=== PATIENT | female | born 1975 | race Caucasian/White ===

== ENCOUNTER 2017-06-22 18:58 | Emergency (ER) | payer MEDICAID, SELFPAY ==
[2017-06-22 18:59] VITALS: BP 159/98; PULSE 82; RESP 16; TEMP 36.7; O2SAT 97; BMI 44.6
--- NOTE | 2017-06-22 20:31 | ED.DCSUM_ITS ---
- ER Visit Summary Date of Service: 06/22/17 Chief Complaint: Rash History of Present Illness: The patient is a 42 F who presents with a rash. 3 days ago she was diagnosed with a dental abscess by her dentist because of an x- ray. She was also having pain. She started amoxicillin. The day she began it she developed a itchy rash on her arms as well as facial redness and swelling. She stopped the amoxicillin but states that her rash and swelling have gotten worse. She has not contacted the dentist or primary care physician. Physical Examination: Afebrile vitals are stable Patient does have some facial erythema and edema but her airway is patent no wheezing no stridor Heart regular rate and rhythm Lungs clear Patient does have a rash on the bilateral arms Test Results: Not indicated Emergency Department Course and Treatment: Patient's history and presentation are consistent with an adverse reaction to amoxicillin and drug allergy. She was given a dose of prednisone here. She was given a prescription for the same. We will switch her to clindamycin for dental abscess and she was discharged home. Treatment Plan: [] Disposition: Discharge Impression: Allergic reaction to amoxicillin Dental abscess This note was generated with [email or web address] dictation software. It may contain incorrect words, spelling, and punctuation that were not noted in review of the chart prior to signing ED Disposition - Plan for ED Patient: Chief Complaint: Allergic Reaction Referrals: Xander Jacome DO [Primary Care Provider] -
--- NOTE | 2017-06-22 20:31 | ED.DEP ---
ED Disposition - Plan for ED Patient: Chief Complaint: Allergic Reaction Instructions: ED Drug React Allergic Prescriptions: Prednisone [Deltasone] 60 mg PO DAILY #12 tab Clindamycin [Cleocin] 300 mg PO TID #60 cap Referrals: Xander Jacome DO [Primary Care Provider] -
[2017-06-22] MEDS: predniSONE 20 MG Tablet 60 MG PO (20:37)
== END 2017-06-22 20:40 | disposition home or self-care (01) ==
PROVIDERS: Emergency Provider Emergency Medicine; Family Provider Student in an Organized Health Care Education/Training Program; PCP Student in an Organized Health Care Education/Training Program
DX: L27.1 Localized skin eruption due to drugs and medicaments taken internally (principal); T36.0X5A Adverse effect of penicillins, initial encounter; K04.7 Periapical abscess without sinus; Z72.0 Tobacco use
CPT/HCPCS: 99283

== ENCOUNTER 2017-11-03 05:47 | Emergency (ER) | payer MEDICAID, SELFPAY ==
[2017-11-03 05:47] VITALS: BP 163/83; PULSE 84; RESP 16; TEMP 36.4; O2SAT 95; BMI 44.9
--- NOTE | 2017-11-03 05:58 | ED.VISSUMM ---
- ER Visit Summary Date of Service: 11/03/17 Chief Complaint: [] Right-sided kidney stone History of Present Illness: The patient is a 42 F of recurrent flank pain for last 3 hours sudden onset continuous waxes and wanes pain in her right lower abdomen flank region. Associated with some mild nausea no vomiting. She stated she thinks she has another kidney stone. She has had 3 like this in the past. It feels the same. She is passed them all. She is never seen a urologist. No home treatment. History of a partial hysterectomy Physical Examination: [] Vital signs reviewed General: Well-nourished well-developed Head: Normocephalic atraumatic Eyes: Pupils equal round and reactive to light extraocular movements intact ENT: TMs clear no hemotympanum no trauma Neck: Nontender full range of motion Cardiovascular: Regular rate rhythm no murmurs normal S1-S2 Respiratory: No distress clear to auscultation bilaterally chest nontender Abdomen: Soft nontender nondistended normal bowel sounds no masses Back: Nontender no CVA tenderness Extremities: Nontender active range of motion ?4 extremities no trauma Skin: Normal color no trauma Neuro alert oriented cranial nerves II through XII intact normal strength sensation reflexes Test Results: [] Emergency Department Course and Treatment: [] Patient given IV fluids, Zofran, morphine, Toradol. Patient felt much better after treatment. She will be discharged with a short course of hydrocodone and Zofran. At this time I do not think she needs further lab work or imaging. This sounds like a recurrent kidney stone she will follow-up with urology. Treatment Plan: [] Disposition: [] Impression: [] Right acute flank pain suspected kidney stone This note was generated with [employer] dictation software. It may contain incorrect words, spelling, and punctuation that were not noted in review of the chart prior to signing ED Disposition - Plan for ED Patient: Disposition: Home or Assisted Living Chief Complaint: Flank Pain Instructions: ED Stone Renal W Colic Prescriptions: Hydrocodone Bitart/Apap 5-325 [[place] 5MG-325MG] 1 - 2 tab PO Q4H PRN PRN 2 Days #8 tab PRN Reason: Pain Ondansetron [Zofran Odt] 4 mg PO Q8H PRN PRN #10 tab PRN Reason: Nausea Referrals: Xander Jacome DO [Primary Care Provider] - Jose Gutiérrez MD [STAFF PHYSICIAN] -
--- NOTE | 2017-11-03 06:01 | DCINST.ED_ITS ---
ED Disposition - Plan for ED Patient: Disposition: Home or Assisted Living Chief Complaint: Flank Pain Instructions: ED Stone Renal W Colic Prescriptions: Hydrocodone Bitart/Apap 5-325 [[place] 5MG-325MG] 1 - 2 tab PO Q4H PRN PRN 2 Days #8 tab PRN Reason: Pain Ondansetron [Zofran Odt] 4 mg PO Q8H PRN PRN #10 tab PRN Reason: Nausea Referrals: Xander Jacome DO [Primary Care Provider] - Jose Gutiérrez MD [STAFF PHYSICIAN] -
[2017-11-03] MEDS: 0.9% Normal Saline 1,000 ML 1000 ML IV (06:02)
[2017-11-03] MEDS: Ondansetron 4 MG/2 ML Vial IV (06:03)
[2017-11-03] MEDS: Ketorolac 30 MG/ML Syringe IV (06:03)
[2017-11-03] MEDS: Morphine 4 MG/ML Syringe IV (06:04)
[2017-11-03 06:54] VITALS: BP 140/79; PULSE 62; RESP 18; O2SAT 99
== END 2017-11-03 06:55 | disposition home or self-care (01) ==
PROVIDERS: Emergency Provider Emergency Medicine; Family Provider Student in an Organized Health Care Education/Training Program; PCP Student in an Organized Health Care Education/Training Program
DX: N20.0 Calculus of kidney (principal); Z87.442 Personal history of urinary calculi; E66.9 Obesity, unspecified; Z68.41 Body mass index [BMI] 40.0-44.9, adult; E03.9 Hypothyroidism, unspecified; Z79.899 Other long term (current) drug therapy; Z72.0 Tobacco use
CPT/HCPCS: 96361; 96374; 96375; 99285; J7030; A4216; J2405

== ENCOUNTER 2017-11-05 14:41 | Emergency (ER) | payer MEDICAID, SELFPAY ==
[2017-11-05 14:41] VITALS: BP 161/94; PULSE 112; RESP 18; TEMP 37.4; O2SAT 96; BMI 44.4
--- NOTE | 2017-11-05 15:35 | ED.DCSUM_ITS ---
- ER Visit Summary Date of Service: 11/05/17 Chief Complaint: [] Right sided abdominal pain for about 4 days History of Present Illness: The patient is a 42 F [] history of cholecystectomy hysterectomy removal of left ovary kidney stones who began having right-sided abdominal pain about 4 days ago she was seen in the emergency department workup was unremarkable, she was seen by urgent care the workup there included negative UA and she was sent to the emergency department today for evaluation no nausea vomiting or fever normal bowel bladder habits normal urinary symptoms has persistence of discomfort she is able to eat Physical Examination: [] Her temperature is 99 the rest of her vital signs are within normal range head neck chest unremarkable abdomen soft there is a vague pain to the right side abdomen there is really no focality the pain it is more general is no obvious rebound guarding organomegaly the back is unremarkable upper lower extremity skin neurologic exam unremarkable Test Results: [] Emergency Department Course and Treatment: [] The differential is extensive given all of the above labs IV fluids CT pain management Patient studies are all generally unremarkable including the CT scan that shows nothing acute normal appendix please see all those reports Stable in the department no change in her status, expand all the test results to her of explained that the exact nature of the pain that she has had for some time now is unclear she has felt her family doctor for the management stay on bland diet Tylenol Motrin for pain and return for change in symptoms and she understands we will do so Treatment Plan: [] Disposition: [] Stable home Impression: [] Right-sided abdominal pain for 4 days etiology unclear This note was generated with [employer] dictation software. It may contain incorrect words, spelling, and punctuation that were not noted in review of the chart prior to signing ED Disposition - Plan for ED Patient: Chief Complaint: Abd Pain Referrals: Xander Jacome DO [Primary Care Provider] -
[2017-11-05 15:59] LABS: Absolute Lymphocyte Count 0.95 X10^3/ul (0.83-4.51); Absolute Neutrophil Count 4.7 X10^3/uL (2.0-7.7); Basophil# 0.01 X10^3/uL; Basophil% 0.2 % (0-1); Eosinophil# 0.07 X10^3/uL; Eosinophils% 1.1 % (0-5); Hematocrit 39.4 % (37-47); Hemoglobin 13.2 g/dl (12.0-15.0); Lymphocyte # 0.95 X10^3/ul (4.0); Lymphocyte % 15.3 % (19-41); Mean Corp Hgb Conc 33.5 g/gl (32-36); Mean Corpuscular Hgb 30.2 pg (27.0-32.0); Mean Corpuscular Volume 90.2 fL (81-99); Mean Platelet Vol. 9.8 fl (6.2-12.0); Monocyte# 0.45 X10^3/uL; Monocyte% 7.2 % (0-10); Neutrophil # 4.73 X10^3/uL (2.7-7.7); Platelet Count 186 K/mm3 (150-450); RBC Distribution Width CV 13.1 % (11.6-14.6); RBC Distribution Width SD 42.5 fl (35.1-43.9); Red Blood Count 4.37 M/mm3 (4.2-5.4); White Blood Count 6.2 K/mm3 (4.4-11.0)
[2017-11-05 16:00] LABS: POSITIVE COUNT NO; POSITIVE DIFFERENTIAL NO; POSITIVE MORPHOLOGY NO
[2017-11-05] MEDS: Ondansetron 4 MG/2 ML Vial IV (16:00)
[2017-11-05] MEDS: 0.9% Normal Saline 1,000 ML 1000 ML IV (16:00)
[2017-11-05] MEDS: morphine 8 MG/ML Syringe IV (16:01)
[2017-11-05 16:14] LABS: Mucous, Urine 0 SEEN /hpf (<or=2+); Red Blood Cells-Urine 0 SEEN /hpf (0-5)
[2017-11-05 16:19] LABS: Color, Urine Yellow (Yellow); Glucose, Dipstick Normal (Normal); Ketone-Dipstick Negative (Negative); Leukocyte Esterase-Dipstick Negative /ul (Negative); Nitrite-Dipstick Negative (Negative); Occult Blood-Urine Negative /ul (Negative); Protein-Dipstick Negative (Negative); Urine Bilirubin Dipstick Negative (Negative); Urine Clarity Cloudy (Clear); Urine Urobilinogen Normal (Normal)
[2017-11-05 16:22] LABS: AST(SGOT) 29 U/L (15-37); Alanine Aminotransfer ALT/SGPT 49 U/L (13-56); Albumin, Serum 3.3 g/dL (3.2-5.0); Alkaline Phosphatase 63 U/L (45-117); Anion Gap 11 (5-15); BUN 9 mg/dL (7-18); BUN/Creat Ratio 10.7 RATIO (10-20); Bilirubin, Direct 0.14 mg/dL (0.00-0.30); Calcium,Total 8.8 mg/dL (8.5-10.1); Chloride 106 mmol/L (98-107); Creatinine, Serum 0.84 mg/dL (0.55-1.02); EST Glomerular Filtration Rate 79 mL/min (>60); Est Glom Filt Rate - Afr Amer 96 mL/min (>60); Estimated Creatinine Clearance 76.11 ml/min; Globulin 4.1 g/dL (2.2-4.2); Glucose 131 mg/dL (74-106); Lipase 113 U/L (73-393); Potassium 3.8 mmol/L (3.5-5.1); Protein, Total 7.4 g/dL (6.4-8.2); Sodium Level 139 mmol/L (136-145)
[2017-11-05 16:38] LABS: White Blood Cells 0-5 SEEN /hpf (0-5)
[2017-11-05 16:39] LABS: Bacteria RARE /hpf (None Seen); Squamous Epithelial Cells - UA 5-10 SEEN /hpf (5-10)
[2017-11-05 16:40] LABS: Transitional Epithelial - Ur 0 SEEN /hpf (0-5)
[2017-11-05 17:28] VITALS: BP 134/85; PULSE 78; RESP 18; O2SAT 98
--- NOTE | 2017-11-05 18:02 | ED.DEP ---
ED Disposition - Plan for ED Patient: Chief Complaint: Abd Pain Instructions: ED Abdominal Pain Unkn Cause Referrals: Xander Jacome DO [Primary Care Provider] -
[2017-11-05 18:14] VITALS: BP 125/78; PULSE 90; RESP 16; O2SAT 98
== END 2017-11-05 18:15 | disposition short-term general hospital (02) ==
PROVIDERS: Emergency Provider Emergency Medicine; Family Provider Student in an Organized Health Care Education/Training Program; PCP Student in an Organized Health Care Education/Training Program
DX: R10.31 Right lower quadrant pain (principal); Z90.49 Acquired absence of other specified parts of digestive tract; Z90.710 Acquired absence of both cervix and uterus; Z90.721 Acquired absence of ovaries, unilateral; Z87.442 Personal history of urinary calculi
CPT/HCPCS: 74176; 80048; 80076; 81001; 83690; 85025; 96374; 96375; 99283; J7030; A4216; J2405

== ENCOUNTER 2018-03-23 01:07 | Emergency (ER) | payer MEDICAID, SELFPAY ==
[2018-03-23 01:07] VITALS: BP 160/92; PULSE 82; RESP 18; TEMP 36.6; O2SAT 95; BMI 42.5
[2018-03-23] MEDS: morphine 8 MG/ML Syringe IM (01:23)
--- NOTE | 2018-03-23 01:51 | ED.DCSUM_ITS ---
- ER Visit Summary Date of Service: 03/23/18 Chief Complaint: Head, neck, shoulder pain History of Present Illness: The patient is a 42 F who woke from sleep 2 days ago with right-sided neck pain. Pain is now persisted and worsened with radiation across the top of her right scalp. She is been taking Tylenol with minimal improvement. Physical Examination: Blood pressure is 160/92, otherwise vitals normal. Patient sitting upright in bed. Head neck examination reveals no external sign of trauma. She has reproducible tenderness of the right cervical paraspinal muscles at the base of the occiput on the right. She has limited rotational range of motion secondary to pain and spasm. Heart is regular rate and rhythm. Lung sounds are clear. Abdomen is soft nontender. Neuro exam reveals normal strength and sensation throughout with strong pulses. Test Results: [] Emergency Department Course and Treatment: Patient is given IM morphine and p.o. Flexeril. On repeat evaluation the neck tightness is slightly improved. She still has significant pain at the base of the occiput. She will be started on anti-inflammatories, [place], and Flexeril. Treatment Plan: [] Disposition: Discharge Impression: Cervical paraspinal strain with spasm This note was generated with [employer] dictation software. It may contain incorrect words, spelling, and punctuation that were not noted in review of the chart prior to signing ED Disposition - Plan for ED Patient: Chief Complaint: Other, Pain/Inj Referrals: Xander Jacome DO [Primary Care Provider] -
--- NOTE | 2018-03-23 02:14 | ED.DEP ---
ED Disposition - Plan for ED Patient: Disposition: Home or Assisted Living Chief Complaint: Other, Pain/Inj Instructions: ED Sprain Strain Neck, ED Spasm Muscle Prescriptions: Hydrocodone Bitart/Apap 5-325 [[place] 5MG-325MG] 1 tablet PO Q6H PRN PRN 3 Days #10 tablet PRN Reason: Pain Naproxen [Naprosyn] 500 mg PO BID PRN PRN #20 tablet PRN Reason: Pain Cyclobenzaprine [Flexeril] 10 mg PO TID PRN #20 tablet PRN Reason: Muscle Spasm Referrals: Xander Jacome DO [Primary Care Provider] - 1 Week
[2018-03-23 02:28] VITALS: BP 163/94; PULSE 75; RESP 18; O2SAT 97
== END 2018-03-23 02:31 | disposition home or self-care (01) ==
PROVIDERS: Emergency Provider Emergency Medicine; Family Provider Student in an Organized Health Care Education/Training Program; PCP Student in an Organized Health Care Education/Training Program
DX: S16.1XXA Strain of muscle, fascia and tendon at neck level, initial encounter (principal); X58.XXXA Exposure to other specified factors, initial encounter; Y93.9 Activity, unspecified; Y92.9 Unspecified place or not applicable; M62.838 Other muscle spasm; Z72.0 Tobacco use
CPT/HCPCS: 96372; 99284

== ENCOUNTER 2024-08-25 11:13 | Emergency (ER) | payer SELFPAY ==
[2024-08-25 11:14] VITALS: BP 178/106; PULSE 83; RESP 16; TEMP 36.4; O2SAT 99; BMI 46.9
--- NOTE | 2024-08-25 11:16 | EDS_ITS ---
HPI History of Present Illness Chief Complaint: Chest Pain Informant: patient Onset/Context/Timing Onset: Yesterday Activity at onset: gradual Timing: Continuous Quality: Positive for Sharp Location: Left Chest Worsened By: - (Smoking a cigarette) Relieved By: - (Coughing) Associated Symptoms: Positive for Dyspnea, Cough, Lightheadedness, Acid Reflux and Palpitations; Negative for Nausea, Vomiting, Diaphoresis or Fever Narrative Narrative: Patient presents with chest pain that began yesterday. Patient was at a different emergency department yesterday. Patient states they wanted to admit her for observation. Patient refused and was discharged. Patient states her pain has been constant today. Patient describes it as sharp. Patient states it is over the left side of her chest. Patient states it is worse when she smokes cigarettes. Patient states it is better with coughing. Patient admits to some shortness of breath and lightheadedness. Patient also admits to some palpitations and reflux symptoms. CVD Risk Factors: Positive for Hypertension and Smoking; Negative for Diabetes, Hypercholesterolemia or Family History 1' </=55 PE Risk Factors: Negative for Recent Travel/Surgery, Recent Immobilization, Prior DVT or PE or Cancer [facility] Medical History (Updated 08/25/24 @ 15:[address] Emmanuel Levy DO) Kidney stones Fatty liver Chronic kidney disease Hypertension Rosie's thyroiditis Home Medications ?Medication ?Instructions ?Recorded ?Last Taken ?Type NK 08/25/24 Unknown History Allergy/AdvReac Type Severity Reaction Status Date / Time amoxicillin Allergy Rash Verified 08/25/24 11:15 Surgical History History of oophorectomy Hx of tubal ligation Hx of section Hx of cholecystectomy Social History (Updated 08/25/24 @ 11:[address] Emmanuel Levy DO) Smoking Status: Current every day smoker tobacco type: cigarettes Smoking packs per day: 1 Smoking cigarettes per day: 20.0 ROS ROS ED Constitutional Constitutional ED: Denies chills or fever(s) Eyes Eyes: Reports blurry vision; Denies change in vision ENT ENT ED: Denies rhinorrhea or sore throat Cardiovascular Cardiovascular: Reports chest pain and palpitations Respiratory/Chest Respiratory/Chest: Reports cough and dyspnea Gastrointestinal Gastrointestinal: Denies nausea or vomiting Genitourinary Genitourinary ED: Denies dysuria or hematuria Musculoskeletal Musculoskeletal: Reports neck pain; Denies back pain Integumentary Denies abscess or rash Neurologic Neurologic: Denies headache(s) or weakness Allergic/Immunologic Allergic/Immunologic ED: Denies mouth swelling or urticaria EXAM Physical Exam Const Vital Signs: 08/25/24 11:14 08/25/24 12:14 08/25/24 13:00 Temperature 97.6 F L Temperature Source Oral Pulse Rate 83 82 75 Respiratory Rate 16 20 H 20 H Blood Pressure 178/106 H 152/102 H 145/93 H Blood Pressure Mean 130 118 110 Pulse Ox 99 98 98 Oxygen Delivery Method Room Air Room Air 08/25/24 14:00 Temperature Temperature Source Pulse Rate 76 Respiratory Rate 19 H Blood Pressure 157/92 H Blood Pressure Mean 113 Pulse Ox 97 Oxygen Delivery Method Room Air Positive well nourished and well developed General Appearance ED: well developed and NAD HEENT Reports moist mucous membranes Neck supple and no JVD Resp normal respiratory effort and clear to auscultation bilaterally Cardio regular rate and regular rhythm GI soft to palpation, non-tender and non-distended Extremity normal to inspection General Extremety ED: Negative for edema or tenderness General Extremity: Negative for edema Neuro oriented x3, CN's II-XII intact bilaterally and no sensory deficits noted Sensorium / Orientation: awake and alert Motor Exam: strength 5/5 throughout Heart Score History: Slightly/Non-Suspicious ECG: Normal Age: >45 - <65 years Risk Factors: 1 or 2 Risk Factors Troponin: </= Normal Limit Score: 2 MDM MDM MDM Narrative Medical decision making narrative: Differential diagnosis includes cardiac dysrhythmia, cardiac ischemia, pneumonia, bronchitis, pulmonary embolism, electrolyte abnormality, musculoskeletal pain, and anxiety. EKG will be obtained to assess for cardiac dysrhythmia and cardiac ischemia. Chest x-ray will be obtained to assess for pneumonia and bronchitis. CBC will be obtained to assess for leukocytosis and anemia. Basic metabolic profile will be obtained to assess for electrolyte abnormality and renal function. High-sensitivity troponin will be obtained to assess for cardiac ischemia. 2-hour repeat high-sensitivity troponin will be obtained to assess for ongoing cardiac ischemia. D-dimer will be obtained to assess for pulmonary embolism. Lab Data Attestation: I reviewed the patient's lab results. Lab results narrative: CBC was reviewed. White blood cell count was slightly low at 3.6. The remainder is within normal limits. Basic metabolic profile was reviewed. Glucose was slightly elevated at 249. The remainder was within normal limits. Initial high-sensitivity troponin was reviewed and was normal at 7. D-dimer was reviewed and was normal at 0.27. TSH was reviewed. It was mildly elevated at 12.1. 2-hour repeat high-sensitivity troponin was reviewed and was normal at 8. Labs: Laboratory Results - last 24 hr 08/25/24 08/25/24 11:45 13:45 WBC 3.6 L RBC 4.42 Hgb 12.5 Hct 37.3 MCV 84.4 MCH 28.3 MCHC 33.5 RDW Std Deviation 43.6 RDW Coeff of Emmanuel 14.2 Plt Count 184 MPV 10.4 Immature Gran % (Auto) 0.300 Neut % (Auto) 58.8 Lymph % (Auto) 26.0 [place] % (Auto) 11.3 H Eos % (Auto) 3.3 Baso % (Auto) 0.3 Absolute Neuts (auto) 2.1 Absolute Lymphs (auto) 0.94 Nucleated RBC % 0 D-Dimer Quant (PE/DVT) 0.27 Sodium 135 Potassium 3.9 Chloride 104 Carbon Dioxide 20.6 L Anion Gap 10 BUN 11 Creatinine 0.62 L Estim Creat Clear Calc 149.56 Est GFR (MDRD) Non-Af 110 BUN/Creatinine Ratio 16.9 Glucose 249 H Calcium 9.0 Troponin T High Sens 7 Troponin T Hi Sens 2 Hr 8 TSH 12.100 H Radiography Chest X-Ray - ED: 1 View, Read by ED Physician, Read by Radiologist and No Acute Disease Diagnostic Testing: Clinical Impression(s) from Imaging Studies Chest X-Ray 08/25/24 11:33 IMPRESSION: No acute process detected. Reading Location: [facility] Portable 1 view chest x-ray was obtained. On my independent interpretation, lung escalante are clear. There is normal cardiac silhouette. Bony thorax is normal. There is no acute process noted. Radiologist also interpreted the x- ray and agrees. EKG Initial EKG: Attestation: I personally reviewed and interpreted this EKG as follows: Interpretation: Sinus Rhythm (80) and No Acute Injury Pattern Comments: EKG was obtained. On my independent interpretation, it showed a normal sinus rhythm with a rate of 80. GA interval, QRS interval, and QTc intervals were all normal. [place] was normal. There are no acute ST or T wave changes. Prior EKG tracings: available for review Prior: Unchanged (12/12/1998) Treatment and Re-Evaluation :: Patient was given aspirin. Patient had no further chest pain. Patient was advised of her findings. Patient has a HEART score of 2. Patient was advised that this is low risk for acute cardiac event. Patient was instructed to follow-up with her primary care physician in 5 to 7 days. Patient was instructed to restart her thyroid medication as previously prescribed. Patient was instructed to return to the emergency department if worse in any way. Patient understood and was agreeable with the plan. All questions were answered. Discharge Plan Triage Chief Complaint: Chest Pain ED Provider: Emmanuel Levy Dx/Rx/DC Orders Clinical Impression: Chest pain, Rosie's thyroiditis, Hypertension Instructions: ED Chest Pain, Uncertain Cause Prescriptions: No Action NK Primary Care Provider: Care Physician,No Primary Referrals: Xander Jacome DO [Non-Staff] - 3-5 Days Print Language: Lebanese Disposition Disposition: Home, Self Care
--- NOTE | 2024-08-25 11:33 | RAD_ITS ---
PROCEDURE: CHEST 1 VIEW (PORTABLE) 08/25/2024 REASON FOR EXAM: CHEST PAIN TECHNIQUE: Frontal view of the chest. COMPARISON: None. FINDINGS: Hardware: EKG leads wires project over the chest. Heart: Normal size. Lungs: Clear. Bones: No aggressive process Other: RAD/Chest 1 View (Portable) IMPRESSION: No acute process detected. Reading Location: [facility]
--- NOTE | 2024-08-25 11:33 | EKG12_ITS ---
Test Reason : chest pain Blood Pressure : */* mmHG Vent. Rate : 80 BPM Atrial Rate : 80 BPM P-R Int : 170 ms QRS Dur : 84 ms QT Int : 408 ms P-R-T Axes : 56 18 36 degrees QTcB Int : 470 ms Normal sinus rhythm Normal ECG Confirmed by Elmo Brito ([id number]), senior editor EMILY WILSON ([id number]) on 08/30/2024 11:31:30 AM Referred By: Confirmed By: Elmo Brito
[2024-08-25 11:59] LABS: Absolute Lymphocyte Count 0.94 X10^3/uL (0.83-4.51); Absolute Neutrophil Count 2.1 X10^3/uL (2.0-7.7); Basophil# 0.01 X10^3/uL; Basophil% 0.3 % (0-1); Eosinophil# 0.12 X10^3/uL; Eosinophils% 3.3 % (0-5); Hematocrit 37.3 % (37-47); Hemoglobin 12.5 g/dL (12.0-15.0); Lymphocyte # 0.94 X10^3/ul (0.83-4.51); Mean Corp Hgb Conc 33.5 g/dL (32-36); Mean Corpuscular Hgb 28.3 pg (27.0-32.0); Mean Corpuscular Volume 84.4 fL (81-99); Mean Platelet Vol. 10.4 fl (6.2-12.0); Monocyte# 0.41 X10^3/uL; Monocyte% 11.3 % (0-10); NRBC Flagged by Analyzer 0 % (0-5); Neutrophil # 2.13 X10^3/uL (2.7-7.7); Neutrophil % 58.8 % (47-70); Platelet Count 184 K/mm3 (150-450); RBC Distribution Width CV 14.2 % (11.6-14.6); RBC Distribution Width SD 43.6 fl (35.1-43.9); Red Blood Count 4.42 M/mm3 (4.2-5.4); White Blood Count 3.6 K/mm3 (4.4-11.0)
[2024-08-25] MEDS: Aspirin 81 MG TAB.CHEW 324 MG PO (12:02)
[2024-08-25 12:14] VITALS: BP 152/102; PULSE 82; RESP 20; O2SAT 98
[2024-08-25 12:15] LABS: D-Dimer Quantitative (DVT/PE) 0.27 FEU/ug/m (0.27-0.49)
[2024-08-25 12:26] LABS: Anion Gap 10 (5-15); BUN 11 mg/dL (4-19); BUN/Creat Ratio 16.9 RATIO (10-20); Carbon Dioxide 20.6 mmol/L (21.0-32.0); Chloride 104 mmol/L (98-108); Creatinine, Serum 0.62 mg/dL (0.70-1.20); EST Glomerular Filtration Rate 110 (>60); Estimated Creatinine Clearance 149.56 ml/min (50-250); Glucose 249 mg/dL (70-99); Potassium 3.9 mmol/L (3.3-5.1); Sodium Level 135 mmol/L (133-145); Troponin T High Sensitivity 7 ng/L (<=14)
[2024-08-25 13:00] VITALS: BP 145/93; PULSE 75; RESP 20; O2SAT 98
[2024-08-25 14:00] VITALS: BP 157/92; PULSE 76; RESP 19; O2SAT 97
[2024-08-25 14:39] LABS: Troponin T High Sens 2 HR 8 ng/L (<=14)
[2024-08-25 15:00] VITALS: BP 155/89; PULSE 72; RESP 18; O2SAT 97
[2024-08-25 15:16] VITALS: BP 155/89; PULSE 72; RESP 18; TEMP 36.6; O2SAT 97
== END 2024-08-25 15:16 | disposition home or self-care (01) ==
PROVIDERS: Emergency Provider Emergency Medicine; Visit Provider Emergency Medicine
DX: R07.9 Chest pain, unspecified (principal); E06.3 Autoimmune thyroiditis; N18.9 Chronic kidney disease, unspecified; I12.9 Hypertensive chronic kidney disease with stage 1 through stage 4 chronic kidney disease, or unspecified chronic kidney disease; F17.210 Nicotine dependence, cigarettes, uncomplicated
CPT/HCPCS: 71045; 80048; 84443; 84484; 85025; 85379; 93005; 99283; A4216